=== PATIENT | female | born 1950 | race Caucasian/White ===

== ENCOUNTER 2018-11-05 10:54 | Emergency (ER) | payer MEDICARE ==
[2018-11-05 11:19] VITALS: BP 147/69
--- NOTE | 2018-11-05 11:34 | UC ---
Cardiac HPI - HPI Summary HPI Summary: 68 y/o female presents to the urgent care c/o both side of the anterior rib pain s/p trying to put a toy together by pulling it in to her chest last Thursday10/31/2018. She is concerned about a rib fracture since she had it in the past. Pain w/ deep breathing or cough is 2/10. However, she has been taking Tylenol PO to alleviate symptoms . She denies bruise, SOB, respiratory distress, SOB, chest pain, abdominal pain, fever, N/V/D. - History of Current Complaint Chief Complaint: UCUpperExtremity Stated Complaint: RIB PAIN Time Seen by Provider: 11/05/18 11:20 Hx Obtained From: Patient Onset/Duration: Sudden Onset, Lasting Days - 4 days, Still Present Timing: Constant Initial Severity: Mild Current Severity: Mild Pain Intensity: 2 Chest Pain Location: Mid Sternal - anterior both side of ribs pain Character: Sharp/Stabbing - achy pain Aggravating Factor(s): Movement, Deep Breaths, Other - cough Alleviating Factor(s): Rest Associated Signs & Symptoms: Positive: Negative. Negative: Vision Changes, Anxiety, Recent Stress, Headaches, Numbness, Tingling, Weakness, Dizziness, SOB , Swelling, Syncope, Fever, Diaphoresis, Nausea/Vomiting, Palpitations, Cough, Hemoptysis, Back Pain, Abdominal Pain, Calf Pain/Swelling - Risk Factors Pulmonary Embolism Risk Factors: Negative Cardiac Risk Factors: Negative Atrial Fibrillation: Negative TAD Risk Factors: Negative - Allergy/Home Medications Allergies/Adverse Reactions: Allergies Allergy/AdvReac Type Severity Reaction Status Date / Time Cephalosporins Allergy Anaphylatic Verified 11/05/18 11:19 Shock Home Medications: Home Medications Aspirin [Aspirin Childrens 81 MG] 81 mg PO 11/05/18 [History] Cyclosporine 0.05% OPHTH (NF) [Restasis 0.05% OPHTH] 1 drop BOTH EYES 11/05/18 [ History] PMH/Surg Hx/FS Hx/Imm Hx Previously Healthy: Yes Other Endocrine History: itamin B12 deficiency - Surgical History Surgical History: Yes Surgery Procedure, Year, and Place: hysterectomy, labreal tear repair - Family History Known Family History: Positive: Cardiac Disease, Hypertension - Social History Occupation: Retired Lives: With Family Alcohol Use: Rare Substance Use Type: None Smoking Status (MU): Never Smoked Tobacco Review of Systems All Other Systems Reviewed And Are Negative: Yes Constitutional: Positive: Negative Skin: Positive: Negative Eyes: Positive: Negative ENT: Positive: Negative Respiratory: Positive: Negative Cardiovascular: Positive: Negative Gastrointestinal: Positive: Negative Genitourinary: Positive: Negative Motor: Positive: Negative Neurovascular: Positive: Negative Musculoskeletal: Positive: Other: - sternal and both anterior tib pain s/p injury w/ a toy Neurological: Positive: Negative Psychological: Positive: Negative Is Patient Immunocompromised?: No Physical Exam - Summary Physical Exam Summary: Vital Signs Reviewed: Yes General: well developed, well nourished male sitting in the examining table w/o any apparent distress Eyes: Positive: Conjunctiva Clear - PERRLA, EOMI, fundi grossly normal ENT: Positive: Normal ENT inspection, Hearing grossly normal, Pharynx normal, Nasal congestion - edematous and erythematous nasal mucosa, Nasal drainage - yellowish drainage, TMs normal. Negative: Tonsillar swelling, Tonsillar exudate Neck: Positive: Supple, Nontender, No Lymphadenopathy Respiratory: no orthopnea or dyspnea. Able to speak in full sentences, no retractions or accessory muscle use, no tripod position, stridor, or head bobbing. Positive breath sounds bilaterally. No wheezing,rhonchi, crackles or rales. Point tenderness over the sternum and both side of the anterior rib cage , no echymosis or bruise, crepitus or deformity or swelling observed. Cardiovascular: Positive: RRR, No Murmur, Pulses Normal, Brisk Capillary Refill Abdomen Description: Positive: Nontender, No Organomegaly, Soft. Negative: CVA Tenderness (R), CVA Tenderness (L) Bowel Sounds: Positive: Present Musculoskeletal Exam: Normal Musculoskeletal: Positive: Strength Intact, ROM Intact, No Edema Neurological Exam: Normal Psychological Exam: Normal Skin Exam: Normal Triage Information Reviewed: Yes Vital Signs: Initial Vital Signs Temp 97.6 F 11/05/18 11:14 Pulse 59 11/05/18 11:14 Resp 18 11/05/18 11:14 BP 147/69 11/05/18 11:14 Pulse Ox 100 11/05/18 11:14 - Assessment/Plan Course Of Treatment: 68 y/o female presents to the urgent care c/o both sides of he anterior rib pain s/p trying to put a toy together by pulling it in to her chest last Thursday10/31/2018. She is concerned about a rib fracture since she had it in the past. Pain w/ deep breathing or cough is 2/10. However, she has been taking Tylenol PO to alleviate symptoms . She denies bruise, SOB, respiratory distress, SOB, chest pain, abdominal pain, fever, N/V/D. Hx obtained. Pt is hemodynamically stable, A&OX3,Vitals: WNL, O2Sat: 100%. Both Rib and chest X-ray ordered: FINDINGS: There is an old fracture of the left posterior fifth rib. No acute fracture is seen. The heart is within normal limits in size. The lungs are clear. There is no evidence for pneumothorax or pleural effusion. IMPRESSION: NO EVIDENCE FOR ACUTE FRACTURE as per radiologist. Possible rib contusion and costochodritis. Pt given an Incentive Spirometer to improve lung function and avoid atelectasis. Nurse educated Pt on how to use it. Pt advised to take Ibuprofen PO and advised to f/u w/ her PCP for further management if not improvement of symptoms. Also advised to avoid strenuous exercise or heavy lifting. Pt's BP is elevated today advised to decrease salt in diet, monitor BP and f/u with PCP for further management. D/C instructions explained. Pt understood and agreed w/ plan of care. left clinic ambulating and hemodynamically stable. - Differential Diagnoses - Chest Pain Differential Diagnosis/HQI/PQRI: Angina, Pulmonary Embolism - Differential Diagnoses - Hypertension Differential Diagnosis/HQI PQRI: Angina, Hypertension, Myocardial Infarction, Other - Rib contusion or fracture - Clinical Impression Provider Diagnosis: Bilateral contusion of ribs, Costochondritis, acute, Elevated BP without diagnosis of hypertension Discharge ED - Sign-Out/Discharge Documenting (check all that apply): Patient Departure - D/c home All imaging exams completed and their final reports reviewed: Yes - Discharge Plan Condition: Stable Disposition: HOME Patient Education Materials: Costochondritis (ED), Rib Contusion (ED) Referrals: Aristeo COULTER,Mark William [Primary Care Provider] - 1 Week Additional Instructions: 1-Please take ibuprofen PO 600mg q6-8hrs prn as instructed after meals to alleviate pain and swelling. rest and avoid strenuous exercise or heavy lifting 2-Please use the Incentive Spirometry as the Nurse explained to improve lung function 3-If symptoms do not improve or worsen please f/u w/ your PCP in 1 week for further evaluation and treatment. 4- Your BP is elevated today. please decrease salt in your diet, monitor BP and if it continues to be elevated please f/u with your PCP for further management. - Billing Disposition and Condition Condition: STABLE Disposition: Home - Attestation Statements Provider Attestation: This patient was not seen by me. I was available for consult. Chart reviewed. MONROE
== END 2018-11-05 12:27 | disposition home or self-care (01) ==
LOC: UCEAST 10:54
DX: S20.212A Contusion of left front wall of thorax, initial encounter (principal); S20.211A Contusion of right front wall of thorax, initial encounter; X50.9XXA Other and unspecified overexertion or strenuous movements or postures, initial encounter; Y92.019 Unspecified place in single-family (private) house as the place of occurrence of the external cause; M94.0 Chondrocostal junction syndrome [Tietze]; R03.0 Elevated blood-pressure reading, without diagnosis of hypertension; Z79.82 Long term (current) use of aspirin
CPT/HCPCS: 71111; 99211; G0463

== ENCOUNTER 2019-04-17 18:40 | Emergency (ER) | payer MEDICARE ==
[2019-04-17 19:08] LABS: ABS Basophils 0.1 10^3/ul (0-0.2); ABS Eosinophils 0.1 10^3/ul (0-0.6); ABS Lymphocytes 3.5 10^3/ul (1.0-4.8); ABS Monocytes 0.7 10^3/ul (0-0.8); ABS Neutrophils 5.9 10^3/ul (1.5-7.7); Eosinophil % 1.3 %; Hematocrit 39 % (35-47); Hemoglobin 13.2 g/dL (12.0-16.0); Lymphocyte % 33.8 %; Mean Corpuscular HGB Conc 34 g/dL (31-36); Mean Corpuscular Hemoglobin 30 pg (27-31); Mean Corpuscular Volume 88 fL (80-97); Mean Platelet Volume 7.8 fL (7.4-10.4); Nucleated Red Blood Cells % 0.1; Platelet Count 272 10^3/uL (150-450); Red Blood Count 4.44 10^6 /uL (3.70-4.87); Red Cell Distribution Width 13 % (10-15); White Blood Count 10.3 10^3/uL (3.5-10.8)
[2019-04-17 19:23] LABS: Albumin 4.4 g/dL (3.2-5.2); Albumin/Globulin Ratio 1.9 (1-3); BUN/Creatinine Ratio 27.3 (8-20); EGFR African American 77.8 (>60); EGFR Non-African American 64.3 (>60); Globulin 2.3 g/dL (2-4); Potassium 3.1 mmol/L (3.5-5.0); Total Bilirubin 0.3 mg/dL (0.2-1.0); Total Protein 6.7 g/dL (6.4-8.9)
[2019-04-17] MEDS ORDERED: Potassium Chlor TAB* 20 MEQ TAB.ER PO ONE (19:38)
--- NOTE | 2019-04-17 19:44 | ED ---
HPI Cardiac - HPI Summary HPI Summary: 68 y/o female presented to [facility] for cardiac complaints she believes are related to stress. Pt notes that her heart has been beating hard for 1 week and she has had SOB. For 1 month she has had mild discomfort in her jaw and neck. Recently she was cleaning out an apartment due to a family member passing away, and in the same week her mother was seen at [facility]. She also believes that her mother needs custodial care. Pt had an atypical CA circa 2013; she remembers the episode but never saw anyone and the episode was diagnosed later after discussion with her PCP. In fall 2017 she was woken occasionally (about once per month) by presumed arrhythmias in her sleep lasting seconds. She received an Echo and was told she may have sarcoidosis. In addition, she received a stress Echo that showed left ventricular akinesis. A later MRI showed she had experienced an CA. She also underwent a 30-day event monitor with no significant findings. After this, she had an anxiety attack for roughly 1 week, after which she was given Xanax by her doctor, which resolved the attack. She has also experienced tingling in her hands and feet in the past , after which she found she has an autoimmune issue. She takes baby aspirin and Vitamin B12. She took 1 drop of CBD oil yesterday to help her sleep, but notes she does not normally do so. Home Medications Medication Instructions Recorded Confirmed Type Aspirin [Aspirin Childrens 81 MG] 81 mg PO 11/05/18 History Cyclosporine 0.05% OPHTH (NF) 1 drop BOTH EYES 11/05/18 History [Restasis 0.05% OPHTH] - History of Current Complaint Chief Complaint: EDChestPainROMI Stated Complaint: PAIN PER PT Time Seen by Provider: 04/17/19 18:50 Onset/Duration: Still Present Timing: Constant Current Severity: None Pain Intensity: 0 Pain Scale Used: 0-10 Numeric Character: Other: - discomfort, heart beating hard Aggravating Factor(s): Other: - stress Alleviating Factor(s): Nothing Associated Signs and Symptoms: Positive: Shortness of Breath, Other: - neck and jaw discomfort, hypertension - Allergy/Home Medications Allergies/Adverse Reactions: Allergies Allergy/AdvReac Type Severity Reaction Status Date / Time Cephalosporins Allergy Anaphylatic Verified 11/05/18 11:19 Shock Home Medications: Home Medications Aspirin [Aspirin Childrens 81 MG] 81 mg PO 11/05/18 [History] Cyclosporine 0.05% OPHTH (NF) [Restasis 0.05% OPHTH] 1 drop BOTH EYES 11/05/18 [ History] PMH/Surg Hx/FS Hx/Imm Hx Sensory History: Denies: Hx Legally Blind, Hx Deafness Opthamlomology History: Denies: Hx Legally Blind EENT History: Denies: Hx Deafness - Cancer History Hx Chemotherapy: No Hx Radiation Therapy: No - Surgical History Surgery Procedure, Year, and Place: hysterectomy, labreal tear repair Infectious Disease History: No Infectious Disease History: Denies: Traveled Outside the [place] in Last 30 Days - Family History Known Family History: Positive: Hypertension - mother, Other - CVA, Afib - Social History Alcohol Use: Rare Substance Use Type: Reports: None Smoking Status (MU): Never Smoked Tobacco Review of Systems Positive: Other - hypertensive Positive: Shortness Of Breath Positive: Other - discomfort in neck and jaw All Other Systems Reviewed And Are Negative: Yes Physical Exam - Summary Physical Exam Summary: Constitutional: Well-developed, Well-nourished, Alert. (-) Distressed Skin: Warm, Dry HENT: Normocephalic; Atraumatic Eyes: Conjunctiva normal Neck: Musculoskeletal ROM normal neck. (-) JVD, (-) Stridor, (-) Tracheal deviation Cardio: Rhythm regular, rate normal, Heart sounds normal; Intact distal pulses; The pedal pulses are 2+ and symmetric. Radial pulses are 2+ and symmetric. (-) Murmur Pulmonary/Chest wall: Effort normal. (-) Respiratory distress, (-) Wheezes, (-) Rales Abd: Soft, (-) tenderness, (-) Distension, (-) Guarding, (-) Rebound Musculoskeletal: (-) Edema Lymph: (-) Cervical adenopathy Neuro: Alert, Oriented x3 Psych: Mood and affect Normal Triage Information Reviewed: Yes Vital Signs On Initial Exam: Initial Vitals Temp Pulse Resp BP Pulse Ox 97.7 F 79 19 200/91 99 04/17/19 18:41 04/17/19 18:41 04/17/19 18:41 04/17/19 18:41 04/17/19 18:41 Vital Signs Reviewed: Yes Procedures - Sedation Patient Received Moderate/Deep Sedation with Procedure: No Diagnostics - Vital Signs Vital Signs Temp Pulse Resp BP Pulse Ox 04/17/19 19:11 73 19 179/97 98 04/17/19 19:01 19 04/17/19 18:41 97.7 F 79 19 200/91 99 - Laboratory Lab Results: Lab Results 04/17/19 04/17/19 Range/Units 18:58 18:58 WBC 10.3 (3.5-10.8) 10^3/uL RBC 4.44 (3.70-4.87) 10^6 /uL Hgb 13.2 (12.0-16.0) g/dL Hct 39 (35-47) % MCV 88 (80-97) fL MCH 30 (27-31) pg MCHC 34 (31-36) g/dL RDW 13 (10-15) % Plt Count 272 (150-450) 10^3/uL MPV 7.8 (7.4-10.4) fL Neut % (Auto) 57.6 % Lymph % (Auto) 33.8 % Barrow % (Auto) 6.8 % Eos % (Auto) 1.3 % Baso % (Auto) 0.5 % Absolute Neuts (auto) 5.9 (1.5-7.7) 10^3/ul Absolute Lymphs (auto) 3.5 (1.0-4.8) 10^3/ul Absolute Monos (auto) 0.7 (0-0.8) 10^3/ul Absolute Eos (auto) 0.1 (0-0.6) 10^3/ul Absolute Basos (auto) 0.1 (0-0.2) 10^3/ul Absolute Nucleated RBC 0.0 10^3/ul Nucleated RBC % 0.1 Sodium 139 (135-145) mmol/L Potassium 3.1 L (3.5-5.0) mmol/L Chloride 105 (101-111) mmol/L Carbon Dioxide 27 (22-32) mmol/L Anion Gap 7 (2-11) mmol/L BUN 24 (6-24) mg/dL Creatinine 0.88 (0.51-0.95) mg/dL Est GFR ( Amer) 77.8 (>60) Est GFR (Non-Af Amer) 64.3 (>60) BUN/Creatinine Ratio 27.3 H (8-20) Glucose 116 H (70-100) mg/dL Calcium 9.0 (8.6-10.3) mg/dL Total Bilirubin 0.30 (0.2-1.0) mg/dL AST 17 (13-39) U/L ALT 15 (7-52) U/L Alkaline Phosphatase 78 (34-104) U/L Troponin I 0.00 (<0.03) ng/mL Total Protein 6.7 (6.4-8.9) g/dL Albumin 4.4 (3.2-5.2) g/dL Globulin 2.3 (2-4) g/dL Albumin/Globulin Ratio 1.9 (1-3) Result Diagrams: 04/17/19 18:58 04/17/19 18:58 Lab Statement: Any lab studies that have been ordered have been reviewed, and results considered in the medical decision making process. - Radiology cxr Radiology Interpretation Completed By: ED Physician Summary of Radiographic Findings: No acute disease. This x-ray was reviewed and interpreted by Dr. Noriega pending official read. - EKG 1847 Cardiac Rate: NL EKG Rhythm: Sinus Rhythm Summary of EKG Findings: EKG at 1847 shows NSR at 81bpm. No ischemic changes. This EKG was reviewed and interpreted by Dr. Noriega. Disposition - Course Course Of Treatment: 68 y/o female presented to [facility] for cardiac complaints she believes are related to stress. Pt notes that her heart has been beating hard for 1 week and she has had SOB. For 1 month she has had mild discomfort in her jaw and neck. Recently she was cleaning out an apartment due to a family member passing away, and in the same week her mother was seen at [facility]. She also believes that her mother needs custodial care. Exam was normal. Bloodwork showed K L, BUN/creatinine ratio H, and Glc H. EKG at 1847 shows NSR at 81bpm. No ischemic changes. X-ray chest showed NAD. Pt was given 40meq PO KCl. Pt was diagnosed with CP, HTN, and anxiety; and discharged to home. - Diagnoses Provider Diagnoses: Chest pain, Anxiety, Hypertension Discharge ED - Sign-Out/Discharge Documenting (check all that apply): Patient Departure - dc - Discharge Plan Condition: Stable Disposition: HOME Patient Education Materials: Chest Pain (ED), Anxiety (ED) Referrals: Aristeo COULTER,Mark William [Primary Care Provider] - Praneeth Maxwell MD [Medical Doctor] - Additional Instructions: Follow up with your primary care provider and Dr. Maxwell in 2-3 days. If you experience new or worsening symptoms please return to the ER. - Billing Disposition and Condition Condition: STABLE Disposition: Home - Attestation Statements Document Initiated by Altafibmaxwell: Yes Documenting Scribe: Dewey Reyna Provider For Whom Jeff is Documenting (Include Credential): Rush Noriega DO Scribe Attestation: Dewey Olivo scribed for Rush Noriega DO on 04/17/19 at 2113. Scribe Documentation Reviewed: Yes Provider Attestation: The documentation as recorded by the Dewey ayala accurately reflects the service I personally performed and the decisions made by Rush magana DO Status of Scribe Document: Viewed
[2019-04-17 19:59] LABS: Magnesium 2.3 mg/dL (1.9-2.7)
[2019-04-17 20:28] VITALS: BP 160/93
[2019-04-17 20:28] LABS: TSH (Thyroid Stimulating Horm) 1.78 mcIU/mL (0.34-5.60)
== END 2019-04-17 20:30 | disposition home or self-care (01) ==
LOC: ED 18:40
DX: R07.89 Other chest pain (principal); R68.84 Jaw pain; M54.2 Cervicalgia; I10 Essential (primary) hypertension; F41.9 Anxiety disorder, unspecified; I25.2 Old myocardial infarction; Z79.82 Long term (current) use of aspirin; Z82.49 Family history of ischemic heart disease and other diseases of the circulatory system
CPT/HCPCS: 36415; 71045; 80053; 83735; 84443; 84484; 85025; 93005; 99282; A9270-GY